=== PATIENT | male | born 1965 | race Caucasian/White ===

== ENCOUNTER 2021-02-27 08:36 | Outpatient (REF) | payer BC, SELFPAY ==
[2021-02-27 11:56] LABS: Creatinine Urine 282.09 mg/dL; Microalbum/Creatinine Ratio Ur 6.3 ug/mg cr
[2021-02-27 11:59] LABS: Alanine Aminotransferase 35 U/L (0-40); Albumin Level 4.3 g/dL (3.5-5.0); Alkaline Phosphatase 80 U/L (39-117); Anion Gap 13 (12-20); Aspartate Amino Transferase 31 U/L (5-37); Bilirubin Total 0.5 mg/dL (0.0-1.0); Blood Urea Nitrogen 14 mg/dL (9-16); Calcium 9.4 mg/dL (8.4-10.2); Carbon Dioxide 26 mmol/L (22-29); Chloride 103 mmol/L (96-108); Cholesterol 268 mg/dL; Estimated Glomerular Filt Rate > 60; Glucose Fasting 104 mg/dL (60-99); HDL Cholesterol 62 mg/dL; LDL Cholesterol Calculated 167 mg/dl; Potassium 4.3 mmol/L (3.3-5.1); Sodium 138 mmol/L (135-145); Total Protein 7.5 g/dL (6.5-8.0); Triglycerides 199 mg/dL
[2021-02-27 12:05] LABS: Appearance Urine CLEAR; Color Urine YELLOW; Glucose Urine UA NEG (NEG); Leukocyte Esterase Urine NEG (NEG); Nitrite Urine NEG (NEG); Specific Gravity - Urine 1.025 (1.005-1.025); Urine Blood NEG (NEG); Urine Ketones NEG (NEG); Urine Protein NEG (NEG-TRACE)
[2021-02-27 12:22] LABS: Prostate Specific Antigen Scr 0.24 ng/mL (<0.05-4.0); TSH reflex Free T4 5.87 uIU/mL (0.32-4.0)
[2021-02-27 13:03] LABS: Free T4 (Free Thyroxine) 0.82 ng/dL (0.71-1.85)
== END 2021-02-27 08:37 | disposition home or self-care (01) ==
LOC: HO.WFDLDS 08:36
PROVIDERS: Visit Provider Family Medicine
DX: Z00.00 Encounter for general adult medical examination without abnormal findings (principal); Z12.5 Encounter for screening for malignant neoplasm of prostate; I10 Essential (primary) hypertension
CPT/HCPCS: 36415; 80053; 80061; 81003; 82043; 84153; 84439; 84443

== ENCOUNTER 2021-04-15 09:36 | Outpatient (REF) | payer BC, SELFPAY ==
[2021-04-15 11:51] LABS: Estimated Average Glucose 123 mg/dL; Hemoglobin A1c % 5.9 %
[2021-04-15 12:05] LABS: Anion Gap 10 (12-20); Blood Urea Nitrogen 14 mg/dL (9-16); Calcium 9.5 mg/dL (8.4-10.2); Carbon Dioxide 30 mmol/L (22-29); Chloride 103 mmol/L (96-108); Estimated Glomerular Filt Rate > 60; Glucose Random 114 mg/dL (60-115); Sodium 139 mmol/L (135-145)
[2021-04-15 12:15] LABS: Free T4 (Free Thyroxine) 0.94 ng/dL (0.71-1.85); Thyroid Stimulating Hormone 3.59 uIU/mL (0.32-4.0)
[2021-04-16 08:57] LABS: Triiodothyronine T3 Total 107 ng/dL (76-181)
== END 2021-04-15 09:37 | disposition home or self-care (01) ==
LOC: HO.WFDLDS 09:36
PROVIDERS: Visit Provider Family Medicine
DX: Z00.00 Encounter for general adult medical examination without abnormal findings (principal); E03.9 Hypothyroidism, unspecified; R79.89 Other specified abnormal findings of blood chemistry; R73.01 Impaired fasting glucose
CPT/HCPCS: 36415; 80048; 83036; 84439; 84443; 84480

== ENCOUNTER 2022-12-17 13:39 | Outpatient (AMB) | payer BC, SELFPAY ==
--- NOTE | 2022-12-17 13:45 | MHC.PC.OV ---
Vital Signs 12/17/22 13:47 Height 6 ft 1.5 in Weight 270 lb 6 oz BMI 35.2 BP 144/92 H Blood Pressure Location Lt brachial Position Sitting Pulse 90 Pulse Source Pulse Oximeter Temp 98.2 F Temp Source Oral Pulse Oximetry (%) 96 Oxygen Delivery Method Room Air Intake Visit Reasons: ? flu, HTN Intake Note: Patient is here with cold symptoms and hypertension. Allergies No Known Allergies Allergy (Verified 12/17/22 13:48) Tobacco use date assessed: 12/17/22 Dental Screening Dental Screen Date: 12/17/22 Did you have a dental visit in the last 12 months?: Yes Did you have a dental problem in the last 6 months where you did not have access to dental care?: No Was dental information given to patient?: Patient has dentist HPI ? flu, HTN HPI Details 57 y/o male presents to f/u hypertension. He also presents with ? viral illness. BP today 144/92. He is on amlodipine 10mg, metoprolol 50mg and spironolactone 50mg daily. [facility] Medical History (Updated 12/17/22 @ 14:23 by Dinh Hernandez) Hypertension Surgical History (Updated 01/24/21 @ 09:41 by Jacqueline Alicea CMA) [place] teeth extracted Family History (Updated 01/24/21 @ 09:43 by Jacqueline Alicea CMA) Father High blood pressure Mother Alzheimer disease Advanced dementia S/P triple vessel bypass Social History Housing: House Patient Tobacco Use Status: Former Tobacco user e-Cigarette/Vaping Use: Never Used service: Yes Current occupational status: employed Current occupational exposures/hazards: No Cognitive needs: No Hearing needs: No Vision needs: No Questionnaire KELLY-7 AMB Questionnaire KELLY-7 Date KELLY - 7 assessed: 04/18/21 Source: Developed by Drs. Ron Pack, Maria Elena Vee, Simon Celis and colleagues, with an educational tomasz from [employer]. Review of Systems Const Denies chills, Denies fatigue, Denies fever(s), Denies headache(s) and Denies weakness ENT Details: Ear pain Denies dizziness, Denies headache(s), Reports nasal congestion and Reports nasal discharge Card Denies chest pain, Denies lightheadedness, Denies dyspnea and Denies other (Palpitations) Resp Denies cough, Denies dyspnea, Denies wheezing and Denies other ( shortness of breath) Musc Denies numbness and Denies tingling Neuro Denies dizziness, Denies headache(s), Denies numbness, Denies tingling, Denies paresthesias and Denies weakness Psych Denies anxiety and Denies depression Endo Denies fatigue Aller/Immun Denies wheezing Physical exam (Primary Care) Vital Signs: Last Vital Signs Temp 98.2 F 12/17/22 13:47 Pulse 90 12/17/22 13:47 BP 144/92 H 12/17/22 13:47 Pulse Ox 96 12/17/22 13:47 Oxygen Delivery Method Room Air 12/17/22 13:47 BMI result Body Mass Index 35.2 Tobacco/Smoking Status: Tobacco use Status Tobacco use date assessed 12/17/22 12/17/22 13:56 Patient Tobacco Use Status Former Tobacco user 12/17/22 13:46 e-Cigarette/Vaping Use Never Used 12/17/22 13:46 Const General: no acute distress and well developed Nutritional Appearance: well nourished Orientation/consciousness: patient oriented x3 [facility] Head: Yes normocephalic and Yes atraumatic Eyes General: appearance normal, both eyes and all related structures Pupils: Equal, round and reactive pupils present EOM: EOMs intact bilaterally Resp Effort & Inspection: normal respiratory effort Auscultation: clear to auscultation bilaterally Cardio Rate: regular rate Rhythm: regular rhythm Heart sounds: S1 normal heart sound present, S2 normal heart sound present, no gallops, no murmurs and no rubs Neuro General: patient oriented x3 and gait normal Cranial nerves: Yes Equal, round and reactive pupils present Psych Affect: normal affect Assessment and Plan Assessment & Plan (1) Viral illness: Code(s): B34.9 - Viral infection, unspecified Plan: Likely?Viral?illness There?is?no?antibiotic?medication?for?viruses.??They?must?run?their?course.??Most?average?5-7?days?but?7-10?days?is?not?uncommon?and?up?to?14?days?is?still?possible.??A?cough?is?often?the?last?symptom?to?resolve?and?this?can?last?for?weeks?in?some?ca ses. Rest Hydrate?well?-??Drink?plenty?of?fluids.??Especially?water. Tylenol?or?ibuprofen?for?muscle?aches,?headache,?fever/discomfort Can?use?eybv-raz-[id number]?medications?for?cough?such?as?Delsym?or?DayQuil.??Prescription?cough?medicines?have?been?shown?to?be?no?better. Can?not?rule?out?COVID/flu/RSV?so?sending?nasal?swab?to?check?these. If?him?a?note?to?be?out?through?Wednesday?and?may?return?to?work?on?Wednesday?pending?test?results.??If?positive?for?COVID?will?need?a?full?quarantine (2) Hypertension: Code(s): I10 - Essential (primary) hypertension Plan: Blood?pressure?is?high?and?has?been?high?at?home?as?well. Continue?amlodipine?and?spironolactone?as?prescribed.??Will?change?metoprolol ER?50mg?daily?to?50?mg?b.i.d. Follow-up?in?1?month Orders: Orders SARS-CoV2/FLU/RSV Today B34.9 - Viral infection, unspecified, Z20.822 - Contact with and (suspected) exposure to COVID-19 Medications: New fluticasone propionate 50 mcg/actuation (Flonase Allergy Relief) administer into each nostril 1 spray intranasal Q12H 30 days 16 grams 2RF Changed From metoprolol succinate ER 50 mg PO DAILY 90 days 90 tabs 3RF To metoprolol succinate ER 50 mg PO BID 90 days 180 tabs 3RF Coding Level of Care Code Est Pt Level 3 (75998) Diagnoses Viral illness B34.9 Hypertension I10
[2022-12-17 13:47] VITALS: BP 144/92; PULSE 90; TEMP 36.8; O2SAT 96; BMI 35.2
== END 2022-12-17 14:46 | disposition home or self-care (01) ==
PROVIDERS: PCP Family Medicine; Visit Provider Family Medicine
DX: B34.9 Viral infection, unspecified (principal); I10 Essential (primary) hypertension
CPT/HCPCS: 99213

== ENCOUNTER 2022-12-17 14:40 | Outpatient (REF) | payer BC, SELFPAY | END 2022-12-17 14:41 | disposition home or self-care (01) | LOC: HO.LAB 14:40 | PROVIDERS: Visit Provider Family Medicine | DX: Z11.52 Encounter for screening for COVID-19 (principal); Z20.822 Contact with and (suspected) exposure to COVID-19; B34.9 Viral infection, unspecified | CPT/HCPCS: 0241U ==